=== PATIENT | female | born 1950 | race Caucasian/White ===

== ENCOUNTER → 2017-08-23 | Outpatient (CLI) | payer MEDICARE, BC ==
[~2017-08-23] MED LIST: ADVAIR IH; ALBUTEROL0.83 MG/ML IH; AMBIEN5 MG PO; EFFEXOR; LIPITOR20 MG PO; TRICOR145 MG PO
== END ==
LOC: BHSO 13:44
DX: F41.1 Generalized anxiety disorder (principal)

== ENCOUNTER → 2018-03-10 | Outpatient (CLI) | payer MEDICARE, BC | LOC: MC.RAD 14:40 | DX: Z12.31 Encounter for screening mammogram for malignant neoplasm of breast (principal) ==

== ENCOUNTER → 2021-12-26 | Outpatient (CLI) | payer MEDICARE, BC | LOC: MC.RAD 14:10 | DX: Z12.31 Encounter for screening mammogram for malignant neoplasm of breast (principal) ==

== ENCOUNTER 2022-05-27 21:38 | Emergency (ER) | payer MEDICARE, BC ==
[~2022-05-27] VITALS: Ht 162.6 cm; Wt 54.5 kg
[2022-05-27 21:43] VITALS: TEMP 98.3
[2022-05-27 22:42] VITALS: BP 124/78; PULSE 76
== END 2022-05-27 22:55 | disposition home or self-care (01) ==
LOC: COL.ER 21:38
DX: S60.221A Contusion of right hand, initial encounter (principal); Z87.310 Personal history of (healed) osteoporosis fracture; Z28.310 Unvaccinated for COVID-19; W22.01XA Walked into wall, initial encounter